=== PATIENT | female | born 1935 | race Hispanic/Latino ===

== ENCOUNTER → 2017-08-27 | Outpatient (CLI) | payer OTHER | END | disposition home or self-care (01) | LOC: SHCH 12:52 | PROVIDERS: ATTEND Internal Medicine Cardiovascular Disease | DX: I87.2 Venous insufficiency (chronic) (peripheral) (principal) | CPT/HCPCS: 93970 ==

== ENCOUNTER → 2019-08-17 | Outpatient (CLI) | payer OTHER | END | disposition home or self-care (01) | LOC: SHCH 14:12 | PROVIDERS: ATTEND Internal Medicine Cardiovascular Disease | DX: I08.0 Rheumatic disorders of both mitral and aortic valves (principal) | CPT/HCPCS: 93306 ==

== ENCOUNTER → 2019-08-23 | Outpatient (CLI) | payer OTHER | END | disposition home or self-care (01) | LOC: SHCH 08:53 | PROVIDERS: ATTEND Internal Medicine Cardiovascular Disease | DX: I87.2 Venous insufficiency (chronic) (peripheral) (principal) | CPT/HCPCS: 93925 ==

== ENCOUNTER → 2020-02-07 | Outpatient (CLI) | payer OTHER ==
[~2020-02-07] MED LIST: ALEN70TA10 PO; AMLO10TA7 PO; APIX2.5T PO; BENZ-51 PO; CA C1TAB95 PO; DOXY100C2 PO; FERR-82 PO; OMEG-108 PO; OMEP40CA13 PO; PRAV40TA3 PO; VITA1TAB39 PO
== END | disposition home or self-care (01) ==
LOC: SHCH 10:00
PROVIDERS: ATTEND Internal Medicine Cardiovascular Disease
DX: I70.203 Unspecified atherosclerosis of native arteries of extremities, bilateral legs (principal)
CPT/HCPCS: 93925

== ENCOUNTER → 2021-08-16 | Outpatient (CLI) | payer OTHER ==
[~2021-08-16] MED LIST changes: -ALEN70TA10 PO; +ALEN70TA80 PO; +AMLO-258 PO; -AMLO10TA7 PO; -BENZ-51 PO; +BENZ-70 PO; -DOXY100C2 PO; +DOXY100C5 PO; -OMEP40CA13 PO; +OMEP40CA21 PO
== END | disposition home or self-care (01) ==
LOC: SHCH 10:05
PROVIDERS: ATTEND Internal Medicine Cardiovascular Disease
DX: I70.213 Atherosclerosis of native arteries of extremities with intermittent claudication, bilateral legs (principal)
CPT/HCPCS: 93925

== ENCOUNTER 2021-10-09 12:21 | Observation (INO) | payer OTHER ==
[~2021-10-09] VITALS: Ht 152.4 cm; Wt 54.7 kg
[2021-10-09 12:47] LABS: BASOPHILS % (AUTO) 0.3 % (0.0-5.0); EOSINOPHILS % (AUTO) 0.1 % (0.0-8.0); HEMATOCRIT 21.8 % (36-48); LYMPHOCYTES % (AUTO) 5.8 % (21.0-51.0); MEAN CORPUSCULAR HEMOGLOBIN 32.7 pg (27.0-33.0); MEAN CORPUSCULAR HGB CONC 31.2 g/dL (32.0-36.0); MEAN CORPUSCULAR VOLUME 104.8 fL (79-99); MONOCYTES % (AUTO) 7.2 % (3.0-13.0); NEUTROPHILS % (AUTO) 86.1 % (40.0-77.0); PLATELET COUNT (AUTO) 172 K/uL (130-400); RED BLOOD CELL COUNT(AUTO) 2.08 MIL/uL (4.00-5.50); WHITE BLOOD COUNT (AUTO) 10.8 K/uL (4.8-10.8)
[2021-10-09 12:58] LABS: CREATININE 1.1 mg/dL (0.5-1.5); POTASSIUM 5.2 mmol/L (3.5-5.1)
[2021-10-09 13:02] LABS: INR 1.06 (0.85-1.15); PROTHROMBIN TIME 11.5 SEC (9.6-11.6)
[2021-10-09 13:03] LABS: ALBUMIN 2.8 g/dL (3.5-5.0); BILIRUBIN,TOTAL 0.7 mg/dL (0.2-1.0); TOTAL PROTEIN, SERUM 5.5 g/dL (6.0-8.3)
[2021-10-09 16:24] LABS: HEMATOCRIT 25.1 % (36-48)
[2021-10-09] MEDS ORDERED: ERGO500093 PO (16:55)
[2021-10-09] MEDS ORDERED: CLOP75TA32 PO (16:55)
[2021-10-09] MEDS ORDERED: METO25PO2 MC (16:55)
[2021-10-09] MEDS ORDERED: NAPR220C62 PO (16:55)
[2021-10-09] MEDS ORDERED: APIX2.5T PO (16:55)
[2021-10-09] MEDS ORDERED: LISI20TA24 PO (16:55)
[2021-10-09] MEDS ORDERED: LEVO5TAB13 PO (16:55)
[2021-10-09] MEDS ORDERED: METO25TA6 PO (16:58)
[2021-10-09] MEDS ORDERED: LACTULOSE 20 GM/30 ML UDCUP PO PRN (17:00)
[2021-10-09] MEDS ORDERED: ACETAMINOPHEN WITH CODEINE 1 TAB TAB PO PRN (17:00)
[2021-10-09] MEDS ORDERED: ONDANSETRON 4MG INJ IV PRN (17:00)
[2021-10-09] MEDS ORDERED: GUAIFENESIN-DM 200/20 MG 10 ML PO PRN (17:00)
[2021-10-09] MEDS ORDERED: ACETAMINOPHEN 325 MG TAB PO PRN (17:00)
[2021-10-09] MEDS ORDERED: NITROGLYCERIN 0.4 MG SL TAB SL PRN (17:00)
[2021-10-09] MEDS ORDERED: MAG/ALUM/SIMETH 30 ML UDCUP PO PRN (17:00)
[2021-10-09 17:32] LABS: RETICULOCYTE % (AUTO) 2.14 % (0.42-2.23)
[2021-10-09 18:04] LABS: % IRON SATURATION 15.4 % (22-44)
[2021-10-09] MEDS: FAMOTIDINE 20MG VIAL IV SCH (20:05)
[2021-10-09] MEDS ORDERED: ATORVASTATIN 10 MG TABLET PO SCH (21:00)
[2021-10-09] MEDS: METOPROLOL TARTRATE 25 MG TAB PO SCH (21:00)
[2021-10-10 01:47] VITALS: BP 155/57
[2021-10-10 04:00] VITALS: BP 151/55
[2021-10-10 07:21] LABS: BASOPHILS % (AUTO) 0.6 % (0.0-5.0); EOSINOPHILS % (AUTO) 2.2 % (0.0-8.0); HEMATOCRIT 25.9 % (36-48); LYMPHOCYTES % (AUTO) 21.2 % (21.0-51.0); MEAN CORPUSCULAR HEMOGLOBIN 33.1 pg (27.0-33.0); MEAN CORPUSCULAR HGB CONC 33.6 g/dL (32.0-36.0); MEAN CORPUSCULAR VOLUME 98.5 fL (79-99); MONOCYTES % (AUTO) 9.9 % (3.0-13.0); NEUTROPHILS % (AUTO) 65.8 % (40.0-77.0); PLATELET COUNT (AUTO) 165 K/uL (130-400); RED BLOOD CELL COUNT(AUTO) 2.63 MIL/uL (4.00-5.50); RED CELL DISTRIBUTION WIDTH 15.7 % (11.0-15.5); WHITE BLOOD COUNT (AUTO) 6.4 K/uL (4.8-10.8)
[2021-10-10 08:00] VITALS: BP 110/46
[2021-10-10 08:03] LABS: CREATININE 0.9 mg/dL (0.5-1.5); POTASSIUM 4.3 mmol/L (3.5-5.1)
[2021-10-10 08:08] LABS: BILIRUBIN,TOTAL 0.9 mg/dL (0.2-1.0)
[2021-10-10] MEDS ORDERED: PANTOPRAZOLE 40 MG TAB DR PO SCH (09:00)
[2021-10-10] MEDS ORDERED: ERGOCALCIFEROL 5000 UNIT PO SCH (09:00)
[2021-10-10] MEDS: FAMOTIDINE 20MG VIAL IV SCH (10:45)
[2021-10-10] MEDS: METOPROLOL TARTRATE 25 MG TAB PO SCH (10:46)
[2021-10-10 12:00] VITALS: BP 132/57
== END 2021-10-10 16:32 | disposition home or self-care (01) ==
LOC: EDH 12:21 → EDHIP 17:02 → INTOOBSV 17:02 → OBSVTOIN 17:02 → 3BH 10-10 01:49
PROVIDERS: ADMIT Internal Medicine; ATTEND Internal Medicine
DX: I73.9 Peripheral vascular disease, unspecified (principal); D50.9 Iron deficiency anemia, unspecified; D62 Acute posthemorrhagic anemia; I95.81 Postprocedural hypotension; I10 Essential (primary) hypertension; E78.5 Hyperlipidemia, unspecified; I48.91 Unspecified atrial fibrillation; M79.81 Nontraumatic hematoma of soft tissue; E11.51 Type 2 diabetes mellitus with diabetic peripheral angiopathy without gangrene; M81.0 Age-related osteoporosis without current pathological fracture; K21.9 Gastro-esophageal reflux disease without esophagitis; E78.00 Pure hypercholesterolemia, unspecified; Z90.710 Acquired absence of both cervix and uterus; Z98.61 Coronary angioplasty status; Z79.899 Other long term (current) drug therapy
CPT/HCPCS: 36415 ×2; 36430; 71045; 74176; 76882; 80053 ×2; 82607; 82728; 85014; 85018; 85025 ×2; 85610; 86850; 86900; 86901; 86922; 86923; 93005; 96374; 96376; 99291; G0378 ×24; J3490 ×2; P9016

== ENCOUNTER → 2021-12-25 | Outpatient (CLI) | payer OTHER ==
[~2021-12-25] MED LIST changes: -AMLO-258 PO; -BENZ-70 PO; -CA C1TAB95 PO; +CLOP75TA32 PO; -DOXY100C5 PO; +ERGO500093 PO; +LEVO5TAB13 PO; +LISI20TA24 PO; +METO25TA6 PO
== END | disposition home or self-care (01) ==
LOC: SHCH 10:31
PROVIDERS: ATTEND Internal Medicine Cardiovascular Disease
DX: I70.293 Other atherosclerosis of native arteries of extremities, bilateral legs (principal); Z95.828 Presence of other vascular implants and grafts
CPT/HCPCS: 93925

== ENCOUNTER → 2024-01-05 | Outpatient (CLI) | payer OTHER | END | disposition home or self-care (01) | LOC: SHCH 11:08 | PROVIDERS: ATTEND Internal Medicine Cardiovascular Disease | DX: I70.202 Unspecified atherosclerosis of native arteries of extremities, left leg (principal) | CPT/HCPCS: 93925 ==